=== PATIENT | male | born 1985 | race Caucasian/White ===

== ENCOUNTER 2017-02-13 03:32 | Emergency (ER) | payer OTHER ==
[~2017-02-13] VITALS: Ht 177.8 cm; Wt 128.2 kg
[2017-02-13 03:34] VITALS: Ht 177.8 cm; Wt 128.2 kg
[2017-02-13] MEDS ORDERED: KETOROLAC 30 MG INJ IM STA (06:31)
--- NOTE | 2017-02-13 07:00 | RADRPT ---
PROCEDURE: CHEST - 1 VIEW CLINICAL INDICATION: 31-year-old male with chest/shoulder pain. TECHNIQUE: A single frontal AP view of the chest was performed. The images were reviewed on a PAC S workstation. COMPARISON: None. FINDINGS: The cardiomediastinal silhouette has a normal appearance. There is no evidence for an infiltrate. T he pulmonary vascularity is within normal limits. There is no evidence for pneumothorax or pneumomed iastinum. The osseous structures are intact. IMPRESSION: No evidence for active cardiopulmonary disease. .Kenneth Blanc MD, MD Date Time Electronically viewed and signed by .Kenneth Blanc MD, on 02/13/2017 06:59 .M/
--- NOTE | 2017-02-13 07:12 | ERD ---
ER Documentation Chief Complaint Date/Time DATE: 02/13/17 TIME: 07:05 Chief Complaint C/O INCREASING LT SHOULDER PAIN. DENIES TRAUMA +NAUSEA DENIES CP/SOB HPI This is a 31-year-old male presenting to the ER with left shoulder pain. Patient states he had a previous shoulder injury several years ago and it was treated with physical therapy and [id number]-sci-ksirhof medications. Patient denies any shoulder surgery. Patient denies any recent injury or trauma. No chest pain or shortness of breath. No difficulty breathing. No fevers or chills. Patient has been taking ibuprofen at home without relief of symptoms. Denies numbness, tingling or loss of sensation. Denies limited mobility. ROS All systems reviewed and are negative except as per history of present illness. Medications Home Meds Active Scripts Tramadol HCl (Tramadol HCl) 50 Mg Tablet, 50 MG PO Q4 Y for PAIN, #20 TAB Prov:ROE BILLINGS NP 02/13/17 Ibuprofen* (Motrin*) 600 Mg Tab, 600 MG PO Q6, #20 TAB Prov:ROE BILLINGS NP 02/13/17 PMhx/Soc Medical and Surgical Hx: pt denies Medical Hx, pt denies Surgical Hx History of Surgery: No Anesthesia Reaction: No Hx Neurological Disorder: No Hx Respiratory Disorders: No Hx Cardiac Disorders: No Hx Psychiatric Problems: No Hx Miscellaneous Medical Probl: No Hx Alcohol Use: No Hx Substance Use: No Hx Tobacco Use: No Smoking Status: Never smoker Physical Exam Vitals Vital Signs Date Time Temp Pulse Resp B/P Pulse Ox O2 Delivery O2 Flow Rate FiO2 02/13/17 03:34 97.3 71 18 130/66 98 Physical Exam Const: Alert, no acute distress Head: Atraumatic Eyes: Normal Conjunctiva ENT: Normal External Ears, Nose and Mouth. Neck: Full range of motion..~ No meningismus. Resp: Clear to auscultation bilaterally. No wheezing, rhonchi or crackles. No stridor or labored breathing. No intercostal retractions. Cardio: Regular rate and rhythm, no murmurs Abd: Soft, non tender, non distended. Normal bowel sounds Skin: No petechiae or rashes Back: No midline or flank tenderness Ext: No cyanosis, or edema. Full mobility to left shoulder. Patient able to forward flex his left shoulder 180 degrees and hyperextend left shoulder about 30 degrees. No obvious deformity. Patient has pain with hyperextension of left shoulder. No dorsal hand numbness to left side. No forearm pain. Radial pulse 2+ bilaterally. Strength strong and equal to bilateral upper extremities. Neur: Awake and alert Psych: Normal Mood and Affect Results 24 hrs Current Medications Medications (Trade) Dose Ordered Sig/Janell Route PRN Reason Start Time Stop Time Status Last Admin Dose Admin Ketorolac Tromethamine (Toradol) 30 mg ONCE STAT IM 02/13/17 06:31 02/13/17 06:33 DC 02/13/17 07:28 Procedures/MDM [place] [address] Rad[facility] Main Line: [phone] DIAGNOSTIC IMAGING REPORT Patient: CHINYERE BROWN : 1985 Age: 31 Sex: M MR #: [id number] DOS: 02/13/17 0631 Ordering MD: ROE BILLINGS NP Location: [facility] Room/Bed: PROCEDURE: XR left shoulder. CLINICAL INDICATION: left shoulder pain, previous injury TECHNIQUE: AP, Internal and external rotation and transscapular views of the left shoulder were performed. COMPARISON: None. FINDINGS: There is normal osseous mineralization and alignment. No acute fracture or osseous lesion is identified. There are normal joints without evidence of arthritis or dislocation. The soft tissues are unremarkable. IMPRESSION: Normal left shoulder [place] [address] Radiology Main Line: [phone] DIAGNOSTIC IMAGING REPORT Patient: CHINYERE BROWN : 1985 Age: 31 Sex: M MR #: [id number] DOS: 02/13/17 0000 Ordering MD: ROE BILLINGS NP Location: [facility] Room/Bed: PROCEDURE: CHEST - 1 VIEW CLINICAL INDICATION: 31-year-old male with chest/shoulder pain. TECHNIQUE: A single frontal AP view of the chest was performed. The images were reviewed on a PACS workstation. COMPARISON: None. FINDINGS: The cardiomediastinal silhouette has a normal appearance. There is no evidence for an infiltrate. The pulmonary vascularity is within normal limits. There is no evidence for pneumothorax or pneumomediastinum. The osseous structures are intact. IMPRESSION: No evidence for active cardiopulmonary disease. MDM: This is a 31-year-old male presenting to emergency department with left shoulder pain 1 week. Patient states he had a previous shoulder injury several years ago however no shoulder surgery. Patient states he was treated before with physical therapy and [id number] ibuprofen. Patient states he has been taking ibuprofen without relief of pain. Physical exam is overall unremarkable. Patient has some pain with hyperextension of the left shoulder however has good range of motion. Patient given Toradol on the ED. X-ray left shoulder reviewed by radiologist as unremarkable. Chest x-ray reviewed by radiologist as no evidence for active cardiopulmonary disease. Patient remains hemodynamically stable. No signs or symptoms of respiratory distress. Vital signs are stable. Patient appears stable and comfortable for discharge home. Low suspicion for acute dislocation or fracture. Patient is appropriate for outpatient management will be given prescription for ibuprofen 600 mg #20 and tramadol 50 mg #20. Instructed patient to follow-up with primary care provider in the next 2-3 days for reassessment. Return to ED for any high fever, chest pain, difficulty breathing, shortness breath, wheezing , vomiting, diarrhea, abdominal pain or any new or worsening symptoms. Patient verbalizes understanding. All questions answered at discharge. Disclaimer: Inadvertent spelling and grammatical errors are likely due to EHR/ dictation software use and do not reflect on the overall quality of patient care. Also, please note that the electronic time recorded on this note does not necessarily reflect the actual time of the patient encounter. Departure Diagnosis: Primary Impression: Shoulder pain Chronicity: unspecified Laterality: left Qualified Code: M25.512 - Left shoulder pain, unspecified chronicity Condition: Stable ROE BILLINGS NP Feb 13, 2017 07:12
--- NOTE | 2017-02-13 07:22 | RADRPT ---
PROCEDURE: XR left shoulder. CLINICAL INDICATION: left shoulder pain, previous injury TECHNIQUE: AP, Internal and external rotation and transscapular views of the left shoulder were per formed. COMPARISON: None. FINDINGS: There is normal osseous mineralization and alignment. No acute fracture or osseous lesion is identified. There are normal joints without evidence of arthritis or dislocation. The soft tissues are unremarkable. IMPRESSION: Normal left shoulder < Physician Seun Date Time Electronically viewed and signed by Dixon Cates Physician on 02/13/2017 07:22 /
[2017-02-13] MEDS ORDERED: IBUP-1542 PO (07:54)
[2017-02-13] MEDS ORDERED: TRAM50TA2 PO (07:54)
== END 2017-02-13 08:14 | disposition home or self-care (01) ==
LOC: FTE 03:32
DX: M25.512 Pain in left shoulder (principal)
CPT/HCPCS: 71010; 73030; 96372; J1885; Z7502